=== PATIENT | male | born 1985 | race Caucasian/White ===

== ENCOUNTER 2016-09-21 17:16 | Emergency (ER) | payer BC ==
[~2016-09-21 17:16] MED LIST: ANADS PO; DEPAKOTEER PO; KEPPRA500 PO; METHOC750B PO; PR25 PO
== END 2016-09-21 18:01 | disposition home or self-care (01) ==
LOC: ER 17:16
DX: K08.89 Other specified disorders of teeth and supporting structures (principal); Z88.5 Allergy status to narcotic agent; Z79.899 Other long term (current) drug therapy
CPT/HCPCS: 99282

== ENCOUNTER 2016-09-22 13:52 | Emergency (ER) | payer BC | END 2016-09-22 14:00 | disposition home or self-care (01) | LOC: ER 13:52 | DX: K02.9 Dental caries, unspecified (principal); F17.200 Nicotine dependence, unspecified, uncomplicated; Z85.038 Personal history of other malignant neoplasm of large intestine; Z88.5 Allergy status to narcotic agent; Z79.899 Other long term (current) drug therapy | CPT/HCPCS: 96372; 99282 ==